=== PATIENT | female | born 1975 | race Caucasian/White ===

== ENCOUNTER 2023-08-04 17:22 | Emergency (ER) | payer BC, OTHER ==
[~2023-08-04] VITALS: Ht 165.1 cm; Wt 49.9 kg
[2023-08-04 18:22] LABS: BASOPHILS # (AUTO) 0.1 K/UL (0.0-0.2); BASOPHILS % (AUTO) 0.5 % (0.0-2.0); EOSINOPHILS # (AUTO) 0.2 K/uL (0.0-0.7); EOSINOPHILS % (AUTO) 1.2 % (0.0-7.0); HEMATOCRIT 30.7 % (31.2-41.9); HEMOGLOBIN 10.4 g/dL (10.9-14.3); LYMPHOCYTES # (AUTO) 1.7 K/uL (0.8-4.8); MEAN CORPUSCULAR HEMOGLOBIN 30.7 uug (24.7-32.8); MEAN CORPUSCULAR HGB CONC 34 g/dL (32.3-35.6); MEAN CORPUSCULAR VOLUME 90.2 fL (75.5-95.3); MONOCYTES # (AUTO) 0.9 K/uL (0.1-1.30); NEUTROPHILS # (AUTO) 10.2 K/uL (1.8-8.9); NEUTROPHILS % (AUTO) 78.3 % (38.5-71.5); PLATELET COUNT (AUTO) 500 K/uL (179-408); RED CELL DISTRIBUTION WIDTH 12.5 % (12.3-17.7); WHITE BLOOD COUNT (AUTO) 13.1 K/uL (3.8-11.8)
[2023-08-04 18:23] LABS: *BILIRUBIN,URIN NEGATIVE (NEGATIVE); *BLOOD, URINE 2+ (NEGATIVE); *CLARITY,URINE CLEAR (CLEAR); *COLOR,URINE YELLOW (YELLOW); *KETONES,URINE NEGATIVE (NEGATIVE); *PROTEIN,URINE 2+ (NEGATIVE); *UROBILINOGEN,URINE 0.2 E.U./dl (NORMAL); LEUKOCYTE ESTERASE ,URINE TRACE (NEGATIVE); NITRITE, URINE NEGATIVE (NEGATIVE); UGLUCOSE NEGATIVE (NEGATIVE)
[2023-08-04 18:24] LABS: DIFFERENTIAL COMMENT 1
[2023-08-04 18:26] LABS: *URINE HCG, QUAL NEGATIVE (NEGATIVE); WBC,URINE 0-3 /HPF (0-3)
[2023-08-04 18:36] LABS: ALBUMIN 2.4 g/dL (3.4-5.0); BILIRUBIN,DIRECT 0.1 mg/dL (0.0-0.2); BILIRUBIN,TOTAL 0.2 mg/dL (0.2-1.0); TOTAL PROTEIN, SERUM 7.5 g/dL (6.4-8.2)
[2023-08-04 18:39] LABS: CARBON DIOXIDE 28 mmol/L (21-32); CHLORIDE 103 mmol/L (98-107); CREATININE 0.7 mg/dL (0.6-1.3); GLUCOSE 130 mg/dL (74-106); POTASSIUM 3.4 mmol/L (3.5-5.1); SODIUM SERUM 138 mmol/L (136-145); UREA NITROGEN, BLOOD 11 mg/dL (7-18)
[2023-08-04] MEDS ORDERED: KETOROLAC TROMETHAMINE 15 MG INJ ONE (18:43)
[2023-08-04] MEDS: IV NORMAL SALINE 1000 ML BAG IV ONE (18:47)
[2023-08-04] MEDS: KETOROLAC TROMETHAMINE 15 MG INJ IVP ONE (18:48)
[2023-08-04] MEDS ORDERED: SWABABLE VALVE TRANSFER SET EA MC ONE (19:20)
[2023-08-04] MEDS ORDERED: IOHEXOL 350 100 ML INFUS..BTL ONE (19:20)
[2023-08-04] MEDS ORDERED: IV NORMAL SALINE 250 ML IV ONE (19:20)
[2023-08-04] MEDS: levoFLOXacin 500 MG/D5W 100ML PIGGYBACK IV ONE (20:46)
[2023-08-04] MEDS ORDERED: levoFLOXacin 500 MG/D5W 100 ML ONE (20:46)
[2023-08-04] MEDS ORDERED: LORAZEPAM 2 MG/1 ML VIAL ONE (21:05)
[2023-08-04] MEDS ORDERED: KETOROLAC TROMETHAMINE 15 MG INJ IVP ONE (21:30)
[2023-08-04] MEDS ORDERED: BENZ-13 PO (21:40)
[2023-08-04] MEDS ORDERED: AZIT250T PO (21:40)
[2023-08-04] MEDS: LORAZEPAM 2 MG/1 ML VIAL IV ONE (21:44)
[2023-08-04 21:57] VITALS: BP 130/69; TEMP 98.9; O2SAT 99
[2023-08-05 00:56] LABS: *AMPHETAMINE, URINE NEGATIVE (NEGATIVE); *BARBITURATE, URINE NEGATIVE (NEGATIVE); *BENZODIAZEPINE, URINE POSITIVE (NEGATIVE); *CANNABINOID, URINE NEGATIVE (NEGATIVE); *COCCAINE, URINE NEGATIVE (NEGATIVE); *OPIATE, URINE NEGATIVE (NEGATIVE); *PHENCYCLIDINE SCREEN,URINE NEGATIVE (NEGATIVE); FENTANYL, URINE NEGATIVE (NEGATIVE)
== END 2023-08-04 21:58 | disposition home or self-care (01) ==
LOC: ER 17:27
DX: J06.9 Acute upper respiratory infection, unspecified (principal); R05.9 Cough, unspecified; R09.81 Nasal congestion; R07.89 Other chest pain; D72.829 Elevated white blood cell count, unspecified; R10.2 Pelvic and perineal pain; F41.9 Anxiety disorder, unspecified; Z20.822 Contact with and (suspected) exposure to COVID-19; Z88.0 Allergy status to penicillin; Z88.5 Allergy status to narcotic agent
CPT/HCPCS: 99285; 96365; 71275; 71045; 96361; 96375; 87426; 80076; 80048; 84703; 83690; 85025; 85379; 84484; 36415; 93005; 80307; 81001; J1885; J1956; J2060; Q9967; J7040; A4606; A4663